=== PATIENT | male | born 1980 | race Caucasian/White ===

== ENCOUNTER 2018-03-01 10:44 | Emergency (ER) | payer MEDICAID ==
[2018-03-01] MEDS: KETOROLAC 30 MG INJ IM (11:22)
[2018-03-01 11:33] LABS: ADD MAN DIFF? NO
[2018-03-01 11:35] LABS: BASOPHILS % 0.2 % (0.0-2.0); EOSINOPHILS # 0.1 10^3/ul (0.0-0.5); EOSINOPHILS % 0.9 % (0.0-7.0); HEMATOCRIT 42.4 % (42.0-52.0); LYMPHOCYTES # 2.4 10^3/ul (0.8-2.9); LYMPHOCYTES % 26.2 % (15.0-51.0); MEAN CORPUSCULAR VOLUME 90.8 fl (82.0-101.0); MEAN PLATELET VOLUME 9.6 fl (7.4-10.4); MONOCYTE # 0.6 10^3/ul (0.3-0.9); NEUTROPHIL # 5.9 10^3/ul (1.6-7.5); NEUTROPHILS % 65.4 % (39.0-77.0); PLATELET COUNT 238 10^3/UL (140-415); RED BLOOD COUNT 4.67 10^6/ul (4.70-6.10)
[2018-03-01 12:05] LABS: ANION GAP 13 (8-16); BLOOD UREA NITROGEN 15 mg/dl (7-20); CALCIUM 9.4 mg/dl (8.4-10.2); CARBON DIOXIDE 26 mmol/L (21-31); CHLORIDE 106 mmol/L (97-110); GLUCOSE 85 mg/dl (70-220); POTASSIUM 3.8 mmol/L (3.5-5.1); SODIUM 141 mmol/L (135-144)
== END 2018-03-01 13:08 | disposition home or self-care (01) ==
LOC: FTE 10:44
DX: M79.675 Pain in left toe(s) (principal)
CPT/HCPCS: 73630; 73630-LT; 80048; 85025; 96372; 99284-25

== ENCOUNTER 2018-03-22 21:23 | Emergency (ER) | payer SELFPAY | END 2018-03-23 00:04 | disposition left against medical advice (07) | LOC: FTE 21:23 → E/R 03-23 00:04 | DX: Z53.21 Procedure and treatment not carried out due to patient leaving prior to being seen by health care provider (principal) ==

== ENCOUNTER 2018-04-03 13:38 | Emergency (ER) | payer SELFPAY, OTHER ==
[2018-04-03] MEDS: SOD CHLORIDE 0.9% 1,000 ML IV (14:07)
[2018-04-03] MEDS: LIDOCAINE/MYLANTA 40 ML BTL PO (14:07)
[2018-04-03] MEDS: FAMOTIDINE 20 MG INJ IV (14:07)
[2018-04-03] MEDS: ONDANSETRON 4 MG INJ IV (14:07)
[2018-04-03 14:08] LABS: ADD MAN DIFF? NO
[2018-04-03 14:09] LABS: WHITE BLOOD COUNT 12.7 10^3/ul (4.8-10.8)
[2018-04-03 14:09] LABS: BASOPHILS % 0.2 % (0.0-2.0); EOSINOPHILS # 0.1 10^3/ul (0.0-0.5); EOSINOPHILS % 0.4 % (0.0-7.0); HEMATOCRIT 41.7 % (42.0-52.0); HEMOGLOBIN 13.8 g/dl (14.0-18.0); LYMPHOCYTES # 1.8 10^3/ul (0.8-2.9); LYMPHOCYTES % 13.9 % (15.0-51.0); MEAN CORPUSCULAR HEMOGLOBIN 29.4 pg (29.0-33.0); MEAN CORPUSCULAR HGB CONC 33.1 g/dl (32.0-37.0); MEAN CORPUSCULAR VOLUME 88.9 fl (82.0-101.0); MEAN PLATELET VOLUME 9.2 fl (7.4-10.4); MONOCYTE # 0.8 10^3/ul (0.3-0.9); NEUTROPHIL # 10.1 10^3/ul (1.6-7.5); NEUTROPHILS % 79.2 % (39.0-77.0); PLATELET COUNT 210 10^3/UL (140-415); RED BLOOD COUNT 4.69 10^6/ul (4.70-6.10); RED CELL DISTRIBUTION WIDTH 13.6 % (11.5-14.5)
[2018-04-03] MEDS ORDERED: morphine 4 MG/ML VIAL (14:29)
[2018-04-03 14:38] LABS: ALANINE AMINOTRANSFERASE 25 IU/L (13-69); ALBUMIN 4.4 g/dl (3.3-4.9); ALBUMIN/GLOBULIN RATIO 1.29; ALKALINE PHOSPHATASE 97 IU/L (42-121); ANION GAP 15 (8-16); ASPARTATE AMINO TRANSFERASE 23 IU/L (15-46); BILIRUBIN,INDIRECT 0.7 mg/dl (0-1.1); BILIRUBIN,TOTAL 0.7 mg/dl (0.2-1.3); BLOOD UREA NITROGEN 14 mg/dl (7-20); CALCIUM 9.4 mg/dl (8.4-10.2); CARBON DIOXIDE 25 mmol/L (21-31); CHLORIDE 108 mmol/L (97-110); CREATININE 0.81 mg/dl (0.61-1.24); GLUCOSE 104 mg/dl (70-220); LIPASE 72 U/L (23-300); POTASSIUM 3.6 mmol/L (3.5-5.1); SODIUM 144 mmol/L (135-144); TOTAL PROTEIN 7.8 g/dl (6.1-8.1)
[2018-04-03] MEDS: morphine 4 MG/ML VIAL IV (14:43)
[2018-04-03] MEDS: DICYCLOMINE 20 MG INJ IM (14:48)
== END 2018-04-03 16:22 | disposition home or self-care (01) ==
LOC: E/R 13:38
DX: R10.13 Epigastric pain (principal)
CPT/HCPCS: 36415; 74176; 76705; 80053; 83690; 85025; 96372; 96374; 96375; 99285-25